=== PATIENT | female | born 1975 | race Caucasian/White ===

== ENCOUNTER → 2024-11-02 12:51 | Outpatient (BNVA) | payer OTHER, SELFPAY | PROVIDERS: Referring Provider Dermatology; Visit Provider Orthopaedic Surgery | DX: M54.9 Dorsalgia, unspecified (principal); M54.42 Lumbago with sciatica, left side; M54.41 Lumbago with sciatica, right side; G89.29 Other chronic pain | CPT/HCPCS: 72110 ==

== ENCOUNTER 2024-11-29 14:54 | Outpatient (CLI) | payer SELFPAY ==
--- NOTE | 2024-11-29 15:15 | MR_ITS ---
WS: [id number] MRI LUMBAR SPINE NONCONTRAST HISTORY: Back Pain, bilateral leg pain for 6 months. COMPARISON: None available. TECHNIQUE: Sagittal and axial multisequence imaging is submitted. Reversal the normal cervical lordosis centered at C4. Normal lumbar alignment with no compression fractures or marrow edema. Disc spaces and vertebral body heights are well-preserved. Conus terminates normally at L1-2 disc level. L1-L2: Normal. L2-L3: Mild ligamentum flavum hypertrophy. No stenosis. L3-L4: Mild annular disc bulging with ligamentum flavum and facet arthritis. Mild foraminal narrowing. No high-grade stenosis. L4-L5: Diffuse annular disc bulge with moderate facet and ligamentum flavum hypertrophy. Fluid in the facet joints. There is disc contacting the traversing L5 nerve roots. Mild bilateral foraminal stenosis. L5-S1: Mild annular disc bulge. Moderate facet arthritis. Mild bilateral foraminal stenosis. Paravertebral soft tissues are negative. MR/MR lumbar spine wo con* [id number] IMPRESSION: 1. No acute fracture. 2. L4-5: Moderate central, bilateral subarticular recess and mild foraminal st enosis. There is disc contacting the traversing L5 nerve roots. Moderate facet joint arthritis. 3. Mild foraminal stenosis at L3-4 and L5-S1.
== END 2024-11-29 14:55 | disposition home or self-care (01) ==
LOC: RAD 14:56
PROVIDERS: Visit Provider Orthopaedic Surgery
DX: M48.061 Spinal stenosis, lumbar region without neurogenic claudication (principal); M48.07 Spinal stenosis, lumbosacral region; M47.816 Spondylosis without myelopathy or radiculopathy, lumbar region
CPT/HCPCS: 72148